=== PATIENT | female | born 1950 | race Caucasian/White ===

== ENCOUNTER 2018-07-31 10:51 | Emergency (ER) | END 2018-07-31 12:58 | disposition home or self-care (01) ==

== ENCOUNTER 2018-11-11 23:48 | Emergency (ER) | payer MEDICARE, OTHER ==
[~2018-11-11] VITALS: Ht 144.8 cm; Wt 56.6 kg
[~2018-11-11 23:48] MED LIST: ACET500C5 PO
[2018-11-11 23:52] VITALS: Ht 144.8 cm; Wt 56.6 kg
--- NOTE | 2018-11-12 02:50 | ERD ---
ER Documentation Chief Complaint Chief Complaint L FOOT/ ANKLE PAIN S/P TRIPPING HPI 68-year-old female, presents to the emergency department, complaining of left foot and ankle pain after a forced inversion that occurred 3 days ago. The pain is dull, constant and. The patient is able to ambulate with a mild limp. she denies distal weakness, numbness or tingling. ROS All systems reviewed and are negative except as per history of present illness. Medications Home Meds Active Scripts Ibuprofen* (Motrin*) 400 Mg Tab, 400 MG PO Q6H PRN for PAIN AND OR ELEVATED TEMP, #20 TAB Prov:LEEANNE ROMERO MD 11/12/18 Acetaminophen* (Tylophen*) 500 Mg Capsule, 1 CAP PO Q6H PRN for PAIN AND OR ELEVATED TEMP, #20 CAP Prov:CELESTE MCKEON MD 07/31/18 Allergies Allergies: Coded Allergies: No Known Allergy (Unverified , 07/31/18) PMhx/Soc History of Surgery: Yes (eye and back surgery) Hx Cardiac Disorders: Yes (hypertension; diabetes mellitus and hypercholesterolemia) Hx Psychiatric Problems: No Hx Miscellaneous Medical Probl: No Hx Alcohol Use: No Hx Substance Use: No Hx Tobacco Use: No Smoking Status: Never smoker Physical Exam Vitals Vital Signs Date Temp Pulse Resp B/P (MAP) Pulse Ox O2 O2 Flow FiO2 Time Delivery Rate 11/12/18 98.2 88 19 158/70 100 Room Air 04:23 (99) 11/11/18 97.0 81 18 187/82 99 23:52 (117) Physical Exam Patient alert, oriented, vital signs stable. HEENT: Normocephalic, atraumatic. EYES: PERRLA, EOMI, Sclera and conjunctiva appear normal. EARS: Canals clear, tympanic membranes WNL. THROAT: Normal oropharynx. NECK: Supple, No lymphadenopathy. Full ROM without pain or tenderness. HEART: RRR, no rubs, murmurs, clicks or gallops. LUNGS: Clear to auscultation. ABDOMEN: Soft, non-tender without masses or hepatosplenomegaly. EXTREMITIES: Left foot: Edema, ecchymosis and tenderness to palpation of the lateral midfoot area. No malleolar tenderness, full range of motion in all digits, adequate sensation and capillary refill. BACK: Full ROM, no deformity, normal back exam NEURO: Cranial nerves grossly intact, no motor or sensory deficit SKIN: No rashes, no petechia. Results 24 hrs Patient: LEEANNE HERNANDEZ : 1950 Age: 68 Sex: F MR #: [id number] DOS: 11/12/18 0254 Ordering MD: LEEANNE ROMERO MD Location: [facility] Room/Bed: PROCEDURE: Left foot series CLINICAL INDICATION: Trauma TECHNIQUE: AP, lateral and oblique images left foot were obtained COMPARISON: None FINDINGS: No acute fractures or dislocations. No focal bony blastic or lytic lesions or erosions. Mild arthrosis of the tarsal metatarsal and first metatarsal phalangeal joints. Mild soft tissue swelling involving the anterior distal left foot but no foreign body. IMPRESSION: 1. Mild degenerate changes as above without acute fractures or dislocations. Procedures/MDM Acute left foot pain: no red flags. Differential diagnosis include but not limited to: Foot contusion, sprain/strain, ligament injury, arthritis; low suspicion for fracture, dislocation, septic arthritis. Neurovascular exam grossly intact. no clinical findings suggestive of acute infectious process, no deformity, no rashes. Pertinent Data: X-rays: No fracture or dislocation Physical examination and clinical presentation consistent most likely with contusion of the left foot. During the ED course the patient received treatment with Orth O shoe presenting overall improvement of the symptoms. Results and clinical impression discussed with patient who agrees with managemen t. The patient is stable to be treated outpatient and will be discharged home with recommendations for ice, rest and partial immobilization. NSAIDs 3 times daily for 5 days and close monitoring. The patient was instructed to follow up with the primary care provider in the next 48h. If symptoms persist, worsen or new symptoms develop, then patient should return to the ED immediately. Instructions explained and given to patient with acknowledgment and demonstrated understanding. Disclaimer: Inadvertent spelling and grammatical errors are likely due to EHR/dictation software use and do not reflect on the overall quality of patient care. Also, please note that the electronic time recorded on this note does not necessarily reflect the actual time of the patient encounter. Departure Diagnosis: Primary Impression: Injury of left foot Condition: Stable Additional Instructions: Stu melton [facility] para coy servicio. Esperamos que en coy visita a la cynthia de emergencia coy problema medico haya sido solucionado y que se sienta mucho mejor. Para estar seguros que coy mejoria sigue en proceso, le pedimos el favor de hacer rosibel scar de seguimiento medico con coy doctor primario en los proximos 2-4 palacio. Lleve con usted estos documentos y las medicinas recetadas. Si cynthia sintomas empeoran, NO SE ESPERE, por favor regrese a cynthia de emergencia INMEDIATAMENTE. En theo que usted no tenga un mdico de atencin primaria: Llame al mdico o clnica comunitaria de referencia que aparece abajo chemo las horas de consultorio para hacer rosibel scar para que le vean. CLINICAS: [facility] [phone] [facility] [phone] [facility] [facility] [phone] [address] [facility]. [facility] [phone] [facility]. [facility] [id number] [facility] [phone] LEEANNE PEARL MD Nov 12, 2018 02:50
[2018-11-12] MEDS ORDERED: IBUP-1561 PO (04:19)
[2018-11-12 04:23] VITALS: BP 158/70; PULSE 88; RESP 19
== END 2018-11-12 04:24 | disposition home or self-care (01) ==
LOC: FTE 23:48
DX: S90.32XA Contusion of left foot, initial encounter (principal); I10 Essential (primary) hypertension; E11.9 Type 2 diabetes mellitus without complications; W18.49XA Other slipping, tripping and stumbling without falling, initial encounter; Y92.9 Unspecified place or not applicable